=== PATIENT | male | born 1965 | race Two or more races ===

== ENCOUNTER 2024-04-08 14:48 | Inpatient (IN) | payer MEDICAID, OTHER ==
[~2024-04-08] VITALS: Ht 160 cm; Wt 65.6 kg
[2024-04-08 19:01] LABS: Urine Bacteria None Seen /hpf (None Seen)
[2024-04-08 19:42] LABS: Hemoglobin 12.6 g/dL (13.5-17.5)
[2024-04-08 19:45] LABS: Hematocrit 36.2 % (41.0-53.0); Mean Corpuscular Hemoglobin 34.4 pg (28.0-32.0); Mean Corpuscular Hgb Conc. 34.7 g/dL (32.0-36.0); Mean Corpuscular Volume 99.1 fL (80.0-100.0); Red Blood Cells 3.66 10^6/uL (4.5-5.90); Red Cell Distribution Width 15.5 % (11.8-14.3); White Blood Cell 15.1 10^3/uL (4.4-10.8)
[2024-04-08 19:51] LABS: Urine Blood 2+ /uL (Negative); Urine Clarity Turbid (Clear); Urine Color Orange (Yellow); Urine Mucus FEW (None Seen); Urine Protein, UAD 1+ (Negative); Urine Specific Gravity 1.031 (1.001-1.035); Urine Urobilinogen Normal (Negative); Urine WBC 4 /hpf (0 - 3); Urine pH 5.5 (5.0-9.0)
[2024-04-08 20:01] LABS: Alanine Aminotransferase 50 U/L (7-40); Alkaline Phosphatase 365 U/L (46-116); Anion Gap 7 (5-15); BUN/Creatinine Ratio 14.3 (10.0-20.0); Blood Urea Nitrogen 15 mg/dL (9-23); Carbon Dioxide 22 mmol/L (20-30); Chloride 96 mmol/L (98-107); Glucose 344 mg/dL (74-106); Lipase 39 U/L (12-53); Potassium 5.1 mmol/L (3.5-5.1); Sodium 125 mmol/L (136-145)
[2024-04-08 20:02] LABS: Albumin 2.7 g/dL (3.2-4.8); Aspartate Aminotransferase 59 U/L (13-40)
[2024-04-08 20:03] LABS: Basophils % (manual) 0 (0.0-2.0); Bilirubin, Total 5.7 mg/dL (0.2-1.0); Blast Cells 0; Eosinophils % (manual) 0 (0-7); Metamyelocytes % 0; Myelocytes % 0; Promyelocytes % 0; Reactive Lymphocytes 0; Total Protein 7.1 g/dL (5.7-8.2)
[2024-04-08 20:20] VITALS: PULSE 95; RESP 16; O2SAT 97
[2024-04-08] MEDS: MAALOX PLUS or MAALOX 30 ML PO ONE (20:26)
[2024-04-08] MEDS: LIDOCAINE VISCOUS 2% 15ML UD MT ONE (20:26)
[2024-04-08 21:09] LABS: Anisocytosis Slight; Lymphocytes % (manual) 6 (10.0-50.0); Monocytes % (manual) 6 (0-12); Platelet Estimate Decreased
[2024-04-08 21:10] LABS: Band Neutrophils % (manual) 2
[2024-04-08] MEDS ORDERED: MORPHINE SULFATE INJ 2 MG/ml SYRG IV PRN (23:15)
[2024-04-08] MEDS ORDERED: TEMAZEPAM 15 MG CAP PO PRN (23:15)
[2024-04-08] MEDS ORDERED: ONDANSETRON HCL 4 MG/2 ML VIAL IV PRN (23:15)
[2024-04-08] MEDS: PANTOPRAZOLE 40 MG TAB PO ONE (23:51)
[2024-04-08 23:52] LABS: INR 1.29 (0.9-1.15); Partial Thromboplastin Time 30.5 SEC (24.5-34.5); Prothrombin Time 13.4 sec (9.3-11.8)
[2024-04-08] MEDS: cefTRIAXone 1GM/50ML D5W 50 ML IV ONE (23:52)
[2024-04-09] VITALS (7 sets, daily range): BP systolic 100–117; BP diastolic 50–67; PULSE 66–74; RESP 16–20; TEMP 97.9–98.5; O2SAT 94–98
[2024-04-09] LABS: Lactic Acid w/Reflex 3.5 mmol/L (0.4-2.0)
[2024-04-09] MEDS: PANTOPRAZOLE 40 MG TAB PO SCH (05:11)
[2024-04-09 08:42] LABS: Basophils # (auto) 0 10 ^3/uL (0-0.2); Basophils % (auto) 0.1 % (0.0-2.0); Eosinophils # (auto) 0 10 ^3/uL (0-0.8); Eosinophils % (auto) 0.2 % (0.0-7.0); Hematocrit 33.1 % (41.0-53.0); Hemoglobin 11.5 g/dL (13.5-17.5); Lymphocytes # (auto) 0.8 10 ^3/uL (0.4-5.4); Mean Corpuscular Hgb Conc. 34.8 g/dL (32.0-36.0); Monocytes # (auto) 0.5 10 ^3/uL (0-1.3); Neutrophils # (auto) 6.5 10 ^3/uL (1.6-8.6); Red Cell Distribution Width 15.1 % (11.8-14.3); White Blood Cell 7.9 10^3/uL (4.4-10.8)
[2024-04-09 08:44] LABS: Lymphocytes % (auto) 9.9 % (10.0-50.0); Mean Corpuscular Hemoglobin 34.5 pg (28.0-32.0); Mean Corpuscular Volume 99.3 fL (80.0-100.0); Monocytes % (auto) 6.8 % (0.0-12.0); Nucleated Red Blood Cells % 0.1 %; Red Blood Cells 3.34 10^6/uL (4.5-5.90)
[2024-04-09 09:10] LABS: Alanine Aminotransferase 41 U/L (7-40); Albumin 2.4 g/dL (3.2-4.8); Alkaline Phosphatase 273 U/L (46-116); Anion Gap 6 (5-15); Aspartate Aminotransferase 41 U/L (13-40); BUN/Creatinine Ratio 19.2 (10.0-20.0); Blood Urea Nitrogen 15 mg/dL (9-23); Calcium 8.5 mg/dL (8.5-10.1); Carbon Dioxide 24 mmol/L (20-30); Chloride 100 mmol/L (98-107); Glucose 312 mg/dL (74-106); Potassium 3.7 mmol/L (3.5-5.1)
[2024-04-09 09:11] LABS: Bilirubin, Total 5.5 mg/dL (0.2-1.0)
[2024-04-09 09:15] LABS: Sodium 130 mmol/L (136-145)
[2024-04-09] MEDS: cefTRIAXone 1GM/50ML D5W 50 ML IV SCH (09:38)
[2024-04-09] MEDS ORDERED: DEXTROSE (50%) 50ML SYRG IV PRN (11:00)
[2024-04-09] MEDS: ACCU-CHEK COMFORT CURVE STRIP VI SCH (12:06)
[2024-04-09] MEDS: InsuLIN REG 1unit/0.01ml Soln (100units/ml) SC SCH ×2 (12:07→22:13)
[2024-04-09] MEDS: INSULIN LANTUS (GLARGINE) 1 /0.01ml (100units/ml) SC ONE (12:08)
[2024-04-09 12:16] LABS: Magnesium 1.7 mg/dL (1.6-2.6)
[2024-04-09 12:26] LABS: CRP High Sensitivity 6.58 mg/dL (<1.0); Lactic Acid w/Reflex 2.5 mmol/L (0.4-2.0)
[2024-04-09 12:44] LABS: Sodium Urine 12 mmol/L (40-220)
[2024-04-09 12:50] LABS: Amphetamine Screen, Urine Neg (NEGATIVE)
[2024-04-09 12:51] LABS: Barbiturate Scree,Urine Neg (NEGATIVE); Benzodiazephine Screen, Urine Neg (NEGATIVE); Cannabinoid Screen, Urine Neg (NEGATIVE); Cocaine Screen, Urine Neg (NEGATIVE); Opiate Scree,Urine Neg (NEGATIVE); Phencyclidine Screen, Urine Neg (NEGATIVE)
[2024-04-10 01:00] VITALS: BP 99/58; PULSE 63; RESP 18; TEMP 98.1; O2SAT 95
[2024-04-10 05:00] VITALS: BP 90/52; PULSE 66; RESP 18; TEMP 98; O2SAT 97
[2024-04-10 05:59] LABS: Basophils # (auto) 0 10 ^3/uL (0-0.2); Eosinophils # (auto) 0.1 10 ^3/uL (0-0.8); Hemoglobin 12.1 g/dL (13.5-17.5); Lymphocytes # (auto) 1.3 10 ^3/uL (0.4-5.4); Monocytes # (auto) 0.5 10 ^3/uL (0-1.3); Red Blood Cells 3.49 10^6/uL (4.5-5.90)
[2024-04-10 06:02] LABS: Basophils % (auto) 0.2 % (0.0-2.0); Eosinophils % (auto) 1.2 % (0.0-7.0); Lymphocytes % (auto) 23.5 % (10.0-50.0); Mean Corpuscular Hemoglobin 34.5 pg (28.0-32.0); Mean Corpuscular Hgb Conc. 34.4 g/dL (32.0-36.0); Mean Corpuscular Volume 100.5 fL (80.0-100.0); Neutrophils # (auto) 3.7 10 ^3/uL (1.6-8.6); Neutrophils % (auto) 66.1 % (37.0-80.0); Nucleated Red Blood Cells % 0.1 %; Red Cell Distribution Width 15.5 % (11.8-14.3); White Blood Cell 5.6 10^3/uL (4.4-10.8)
[2024-04-10] MEDS: INSULIN LANTUS (GLARGINE) 1 /0.01ml (100units/ml) SC SCH (06:06)
[2024-04-10 06:13] LABS: Alanine Aminotransferase 38 U/L (7-40); Albumin 2.4 g/dL (3.2-4.8); Alkaline Phosphatase 246 U/L (46-116); Anion Gap 5 (5-15); Aspartate Aminotransferase 43 U/L (13-40); Blood Urea Nitrogen 9 mg/dL (9-23); Calcium 8.7 mg/dL (8.5-10.1); Carbon Dioxide 25 mmol/L (20-30); Chloride 109 mmol/L (98-107); Glucose 98 mg/dL (74-106); Magnesium 1.8 mg/dL (1.6-2.6); Potassium 3.8 mmol/L (3.5-5.1); Sodium 139 mmol/L (136-145)
[2024-04-10 06:14] LABS: Total Protein 6.1 g/dL (5.7-8.2)
[2024-04-10 06:15] LABS: Bilirubin, Total 3.8 mg/dL (0.2-1.0)
[2024-04-10 06:23] LABS: CRP High Sensitivity 6.19 mg/dL (<1.0)
[2024-04-10 07:31] VITALS: BP 102/56; PULSE 63; RESP 20; TEMP 98.4; O2SAT 97
[2024-04-10 09:32] LABS: Hepatitis B Core Total AB Negative (Negative)
[2024-04-10 11:11] LABS: Hepatitis A Total Antibody Positive (Negative); Hepatitis B Surface Antibody Negative (Negative); Hepatitis B Surface Antigen Negative (Negative); Hepatitis C Antibody Negative (Negative)
[2024-04-10 13:00] VITALS: BP_SYST 114; BP_SYST 130; BP_DIAS 53; BP_DIAS 62; PULSE 58; PULSE 63; RESP 18; RESP 20; TEMP 98.2; O2SAT 97
[2024-04-10] MEDS ORDERED: PANT40T PO (13:29)
[2024-04-10 17:09] VITALS: BP 123/70; PULSE 58; RESP 18; TEMP 98.3; O2SAT 98
== END 2024-04-10 18:35 | disposition home or self-care (01) ==
LOC: ER 14:48 → OVERFLOW 23:19 → WEST WING 04-09 02:52
PROVIDERS: ADMIT Internal Medicine Pulmonary Disease; ATTEND Radiology Diagnostic Radiology
DX: K74.60 Unspecified cirrhosis of liver (principal); D69.6 Thrombocytopenia, unspecified; D68.9 Coagulation defect, unspecified; E44.0 Moderate protein-calorie malnutrition; E72.20 Disorder of urea cycle metabolism, unspecified; K76.6 Portal hypertension; E87.1 Hypo-osmolality and hyponatremia; E80.6 Other disorders of bilirubin metabolism; K81.9 Cholecystitis, unspecified; K83.09 Other cholangitis; R73.9 Hyperglycemia, unspecified; F10.10 Alcohol abuse, uncomplicated; Y90.9 Presence of alcohol in blood, level not specified; D53.9 Nutritional anemia, unspecified; E87.70 Fluid overload, unspecified; Z68.25 Body mass index [BMI] 25.0-25.9, adult
CPT/HCPCS: 36415; 74181; 76705; 80053; 80061; 80307; 81001; 82140; 82962; 83036; 83605; 83690; 83735; 83930; 83935; 84300; 84443; 85007; 85025; 85027; 85610; 85730; 86141; 86704; 86706; 86708; 86803; 87040; 87086; 87340; G0378; J1815

== ENCOUNTER 2024-04-30 20:46 | Emergency (ER) | payer MEDICAID ==
[~2024-04-30] VITALS: Ht 162.6 cm; Wt 67.2 kg
[~2024-04-30 20:46] MED LIST: PANT40T PO
[2024-04-30] MEDS: MORPHINE SULFATE 4 MG/ML SYR/VIAL IV ONE (23:15)
[2024-04-30] MEDS: ASPirin-EC 325mg tab PO ONE (23:15)
[2024-05-01 00:02] LABS: Basophils # (auto) 0 10 ^3/uL (0-0.2); Basophils % (auto) 0.2 % (0.0-2.0); Eosinophils # (auto) 0 10 ^3/uL (0-0.8); Eosinophils % (auto) 0.1 % (0.0-7.0); Hemoglobin 12.3 g/dL (13.5-17.5); Lymphocytes # (auto) 1.2 10 ^3/uL (0.4-5.4); Monocytes # (auto) 0.9 10 ^3/uL (0-1.3); White Blood Cell 12.2 10^3/uL (4.4-10.8)
[2024-05-01 00:03] LABS: Hematocrit 34.8 % (41.0-53.0); Lymphocytes % (auto) 10.1 % (10.0-50.0); Mean Corpuscular Hemoglobin 35.7 pg (28.0-32.0); Mean Corpuscular Hgb Conc. 35.4 g/dL (32.0-36.0); Mean Corpuscular Volume 100.8 fL (80.0-100.0); Monocytes % (auto) 7.3 % (0.0-12.0); Neutrophils % (auto) 82.3 % (37.0-80.0); Red Blood Cells 3.45 10^6/uL (4.5-5.90); Red Cell Distribution Width 15.5 % (11.8-14.3)
[2024-05-01 00:09] LABS: Alanine Aminotransferase 59 U/L (7-40); Albumin 2.7 g/dL (3.2-4.8); Alkaline Phosphatase 336 U/L (46-116); Anion Gap 6 (5-15); Aspartate Aminotransferase 70 U/L (13-40); BUN/Creatinine Ratio 11.8 (10.0-20.0); Blood Urea Nitrogen 10 mg/dL (9-23); Calcium 8.4 mg/dL (8.7-10.4); Carbon Dioxide 25 mmol/L (20-30); Chloride 105 mmol/L (98-107); Glucose 181 mg/dL (74-106); INR 1.4 (0.9-1.15); Magnesium 1.6 mg/dL (1.6-2.6); Partial Thromboplastin Time 31.9 SEC (24.5-34.5); Potassium 3.6 mmol/L (3.5-5.1); Prothrombin Time 14.5 sec (9.3-11.8); Sodium 136 mmol/L (136-145)
[2024-05-01 00:10] LABS: Bilirubin, Total 5.8 mg/dL (0.2-1.0); Total Protein 6.7 g/dL (5.7-8.2)
[2024-05-01 01:44] LABS: Urine Bacteria FEW /hpf (None Seen); Urine Blood 3+ /uL (Negative); Urine Clarity Clear (Clear); Urine Color Orange (Yellow); Urine Mucus FEW (None Seen); Urine Protein, UAD TRACE (Negative); Urine Specific Gravity 1.028 (1.001-1.035); Urine Urobilinogen 2 mg/dL (Negative); Urine WBC 3 /hpf (0 - 3); Urine pH 5.5 (5.0-9.0)
[2024-05-01 03:30] VITALS: BP 140/70; PULSE 78; RESP 13; TEMP 98.1; O2SAT 97
[2024-05-01] MEDS: traMADol HCL 50 MG TAB PO ONE (03:51)
== END 2024-05-01 04:08 | disposition home or self-care (01) ==
LOC: ER 20:46
DX: K70.31 Alcoholic cirrhosis of liver with ascites (principal); R31.9 Hematuria, unspecified; K21.9 Gastro-esophageal reflux disease without esophagitis; Z79.899 Other long term (current) drug therapy
CPT/HCPCS: 36415; 71045; 74176; 80053; 81001; 83735; 83880; 84484; 85025; 85610; 85730; 93005